=== PATIENT | female | born 1985 | race Caucasian/White ===

== ENCOUNTER 2018-11-26 09:47 | Emergency (ER) | payer MEDICAID ==
[2018-11-26] MEDS: ONDANSETRON (ODT) 4 MG TAB ODT (10:43)
[2018-11-26] MEDS: KETOROLAC 30 MG INJ IM (10:49)
== END 2018-11-26 11:11 | disposition home or self-care (01) ==
LOC: FTE 09:47
DX: R50.9 Fever, unspecified (principal); R05 Cough; R52 Pain, unspecified
CPT/HCPCS: 81025; 96372; 99284-25